=== PATIENT | female | born 1995 | race Caucasian/White ===

== ENCOUNTER → 2022-10-25 11:00 | Outpatient (CLI) | payer OTHER, SELFPAY | PROVIDERS: PCP Nurse Practitioner Family; Visit Provider Nurse Practitioner Family | DX: J02.0 Streptococcal pharyngitis (principal) | CPT/HCPCS: 87070 ==

== ENCOUNTER 2023-02-10 12:12 | Emergency (ER) | payer OTHER, SELFPAY ==
[2023-02-10 12:13] VITALS: BP 115/76; PULSE 88; RESP 14; TEMP 37.2; O2SAT 100; BMI 19.8
[2023-02-10 12:41] VITALS: BP 111/59; PULSE 84; RESP 16; TEMP 37.1; O2SAT 100; BMI 19.8
[2023-02-10 12:41] LABS: UTC Strep Screen (Rapid) Negative (Negative)
--- NOTE | 2023-02-10 12:56 | EXP.UTC ---
Discharge Plan Disposition Patient Disposition: Home, Self-Care Condition: Good Prescriptions Prescriptions: No Action No Known Home Medications Referrals Follow up/Referrals: Maranda Jaimes APRN [Primary Care Provider] - See instructions Clinical Impressions Clinical Impression: Upper respiratory tract infection Stand Alone Forms Stand Alone Forms: Work/School Release Instructions Patient Instructions: DI for Viral Upper Respiratory Infection -- Adult Discharge ED Provider: Tana Cristina [facility] [place] HPI General Stated complaint: Sore throat,Fever,Cough,Nausea Mode of Arrival: Ambulatory Source of Information: Patient Limitations: No Limitations Time Seen by Provider: 02/10/23 12:55 Description of Symptoms (Recalled from Triage Doc. by RN): pt states she woke up yesterday with body aches and sore throat, states it has gotten progressively worse HEENT Symptoms (Recalled from RN notes): Yes (sore throat) Resp Symptoms (Recalled from RN notes): No Skin Symptoms (Recalled from RN notes): No MS Symptoms (Recalled from RN notes): No Functional Status (Recalled from RN notes): wnl History of Present Illness Provider Complaint: Pt states that she has been achy with a sore throat since yesterday. She reports that she started feeling even worse at work and came here to make sure she didn't have strep. She denies taking anything for her symptoms. Related Data Home Medications Medication Instructions Recorded Confirmed No Known Home Medications 02/10/23 02/10/23 Allergies Allergy/AdvReac Type Severity Reaction Status Date / Time cetirizine Allergy Intermediate Shakiness Verified 02/10/23 12:45 Worker's Comp Is this a Worker's Comp case?: No Is this an [facility] Worker's Comp?: No Is this a [facility] Worker's Comp?: No [facility] Disclaimer: The information contained in this section may have been updated after the patient was seen, as this information can be updated by other users. Social History (Updated 10/25/22 @ 14:07 by Tracey Apodaca MA) Smoking Status: Current every day smoker alcohol intake: never current occupational status: employed Travel in the last 8 weeks: None ROS Obtained: Yes All systems reviewed & no additional complaints except as documented Constitutional Constitutional: Reports system reviewed and no additional complaints, except as documented, Reports body ache and Reports malaise Eyes Eyes: Reports system reviewed and no additional complaints, except as documented ENT Ears, Nose, Mouth, and Throat: Reports system reviewed and no additional complaints, except as documented, Reports as per HPI and Reports sore throat Cardiovascular Cardiovascular: Reports system reviewed and no additional complaints, except as documented Respiratory Respiratory: Reports system reviewed and no additional complaints, except as documented Gastrointestinal Gastrointestingal: Reports system reviewed and no additional complaints, except as documented Genitourinary Female Genitourinary: Reports system reviewed and no additional complaints, except as documented Musculoskeletal Musculoskeletal: Reports system reviewed and no additional complaints, except as documented Integumentary/Breasts Skin/Breast: Reports system reviewed and no additional complaints, except as documented Neurologic Neurologic: Reports system reviewed and no additional complaints, except as documented Endocrine Endocrine: Reports system reviewed and no additional complaints, except as documented Hematologic/Lymphatic Henatologic/Lymphatic: Reports system reviewed and no additional complaints, except as documented Allergic/Immunologic Allergic/Immunologic: Reports system reviewed and no additional complaints, except as documented Physical Exam General General appearance: alert and in no apparent distress Head Head exam: atraumatic and normocephalic Eye Eye exam: Present normal appearance Expanded ENT Exam External ear ex
[2023-02-10 13:04] VITALS: BP 115/60; PULSE 82; RESP 16; TEMP 37; O2SAT 100
== END 2023-02-10 13:04 | disposition home or self-care (01) ==
PROVIDERS: Emergency Provider Nurse Practitioner Family; PCP Nurse Practitioner Family
DX: J06.9 Acute upper respiratory infection, unspecified (principal); R50.9 Fever, unspecified; F17.210 Nicotine dependence, cigarettes, uncomplicated
CPT/HCPCS: 87880; 99204; 99212; G0463

== ENCOUNTER 2023-02-17 05:51 | Emergency (ER) | payer OTHER, SELFPAY ==
[2023-02-17 05:52] VITALS: BP 108/71; PULSE 103; RESP 18; TEMP 36.9; O2SAT 98; BMI 19.8
--- NOTE | 2023-02-17 06:08 | HMH.EDEYEP ---
Discharge Plan Disposition Patient Disposition: Home, Self-Care Prescriptions Prescriptions: New cephalexin [cephalexin] 500 mg capsule 500 mg PO TID Qty: 30 0RF prednisone [prednisone] 20 mg tablet 20 mg PO BID Qty: 10 0RF Referrals Follow up/Referrals: Maranda Jaimes APRN [Primary Care Provider] - See instructions Clinical Impressions Clinical Impression: Bacterial conjunctivitis, Sinusitis Stand Alone Forms Stand Alone Forms: Work/School Release Instructions Patient Instructions: DI for Sinusitis Discharge ED Provider: Poncho (ED)Deepak Eye Problem HPI General Chief complaint: Eye Problems Stated complaint: Right eye redness/sinus pressure Time Seen by Provider: 02/17/23 06:08 Mode of Arrival: Ambulatory Source of Information: Patient and Medical Record Limitations: No Limitations Description of Symptoms (Recalled from ER Triage Doc. by RN): pt reports that she has woke up the past few days and her right eye is irritated and matted up the pt reports that she was diagnosed with a sinus infection last week but not given anything for it, History of Present Illness HPI Narrative: rt eye with crusted and has hx of sinus infection chief complaint: eye redness Onset (ago): day(s) Onset description: gradual Duration: intermittent Location: right eye Place: home Severity: moderate Treatments Prior to Arrival: none Related Data Previous Rx's Medication Instructions Recorded cephalexin 500 mg capsule 500 mg PO TID #30 caps 02/17/23 prednisone 20 mg tablet 20 mg PO BID #10 tabs 02/17/23 Allergies Allergy/AdvReac Type Severity Reaction Status Date / Time cetirizine Allergy Intermediate Shakiness Verified 02/10/23 12:45 [facility] Disclaimer: The information contained in this section may have been updated after the patient was seen, as this information can be updated by other users. Social History (Updated 10/25/22 @ 14:07 by Tracey Apodaca MA) Smoking Status: Current every day smoker alcohol intake: never current occupational status: employed Travel in the last 8 weeks: None ROS Obtained: Yes All systems reviewed & no additional complaints except as documented Physical Exam General General appearance: alert Head Head exam: normocephalic Eye Eye exam: Present PERRL, EOMI and conjunctival redness ENT ENT exam: Present mucous membranes moist and other (sinus tenderness ) Neck Neck exam: Present trachea midline Respiratory Respiratory exam: Present normal lung sounds bilaterally; Absent respiratory distress Cardiovascular Cardiovascular exam: Present regular rate Abdominal Exam Abdominal exam: Present soft Extremities Exam Extremities exam: Present full ROM Neurological Exam Neurological exam: Present alert, oriented X3 and CN II-XII intact Psychiatric Psychiatric exam: Present normal affect Skin Skin exam: Absent rash Medical Decision Making Medical Records Medical records reviewed: Yes I reviewed the patient's medical records. Ángel Inquiry Pt receiving controlled substance: No Vital Signs: 02/17/23 05:52 Temperature 98.5 F Temperature Source Oral Pulse Rate [Right] 103 H Respiratory Rate 18 Blood Pressure [Right Arm] 108/71 L Blood Pressure Mean [Right Arm] 83 02 Sat by Pulse Oximetry 98 Oxygen Delivery Method Room Air Medical Decision Narrative: pt with sinus infection and also conjunctivitis Critical Care Time Critical Care Time Critical Care Time: No Attestation: On 02/17/23, the high probability of a clinically significant, sudden or life threatening deterioration of the following system(s) required my full and direct attention, intervention and personal management. The time I documented below is in addition to time spent performing reported procedures but includes the following listed in this critical care notation.
[2023-02-17 06:11] VITALS: BP 110/70; PULSE 85; RESP 16; TEMP 36.9; O2SAT 99
== END 2023-02-17 06:17 | disposition home or self-care (01) ==
PROVIDERS: Emergency Provider Emergency Medicine; PCP Nurse Practitioner Family
DX: H10.31 Unspecified acute conjunctivitis, right eye (principal); J01.90 Acute sinusitis, unspecified; F17.200 Nicotine dependence, unspecified, uncomplicated
CPT/HCPCS: 99283; 99284

== ENCOUNTER → 2023-03-05 23:51 | Outpatient (CLI) | payer OTHER, SELFPAY ==
[2023-03-05 17:54] LABS: Adenovirus,PCR Not Detected (NotDetected); Bordetella Pertussis Not Detected (NotDetected); Chlamydophila Pneumoniae, PCR Not Detected (NotDetected); Coronavirus 19, PCR Not Detected (NotDetected); Coronavirus 229E Not Detected (NotDetected); Coronavirus NL63 Not Detected (NotDetected); Coronavirus OC43 Not Detected (NotDetected); Coronovirus HKU1,PCR Not Detected (NotDetected); Human Metapneumovirus Not Detected (NotDetected); Influenza A, PCR Not Detected (NotDetected); Influenza AH1, 2009 Not Detected (NotDetected); Influenza AH1, PCR Not Detected (NotDetected); Influenza AH3,PCR Not Detected (NotDetected); Influenza B, PCR Not Detected (NotDetected); Mycoplasma Pneumoniae, PCR Not Detected (NotDetected); Parainfluenza 1, PCR Not Detected (NotDetected); Parainfluenza 2, PCR Not Detected (NotDetected); Parainfluenza 3, PCR Not Detected (NotDetected); Parainfluenza 4, PCR Not Detected (NotDetected); Respiratory Syncytial Virus Not Detected (NotDetected)
[2023-03-05 21:22] LABS: Rhinovirus/Enterovirus Detected (NotDetected)
== END ==
LOC: LAB.DROPOF 23:52
PROVIDERS: PCP Student in an Organized Health Care Education/Training Program; Visit Provider Student in an Organized Health Care Education/Training Program
DX: R05.9 Cough, unspecified (principal); B34.1 Enterovirus infection, unspecified
CPT/HCPCS: 87581; 87632; 87798; C9803; U0003; U0005

== ENCOUNTER → 2023-05-07 13:30 | Outpatient (CLI) | payer OTHER, SELFPAY ==
[2023-05-07 19:07] LABS: Basophils % 0.4 % (0.1-2.0); Eosinophils # 0.5 K/mm3 (0.0-0.4); Eosinophils % 6.1 % (0.1-12.0); Hematocrit 40.5 % (37.0-47.0); Hemoglobin 12.9 g/dL (12.2-16.2); Lymphocytes # 2.9 K/mm3 (0.7-4.5); Lymphocytes % 40.1 % (10-50); Mean Corpuscular Volume 84.4 fl (81-99); Mean Platelet Volume 9.2 fl (7.4-10.4); Monocytes # 0.6 K/mm3 (0.1-1.0); Monocytes % 8.3 % (1.7-9.3); Neutrophils # 3.3 K/mm3 (1.8-7.8); Neutrophils % 45.1 % (37.0-80.0); Platelet Count 263 K/mm3 (142-424); Red Cell Distribution Width 14.2 % (11.5-17.5); White Blood Count 7.3 K/mm3 (4.8-10.8)
[2023-05-07 19:14] LABS: Alanine Aminotransferase 16 U/L (12-78); Albumin Level 4.7 g/dl (3.5-5.0); Albumin/Globulin Ratio 1.9 (1.1-1.8); Alkaline Phosphatase 82 U/L (38-126); Anion Gap 14.7 mEq/L (5-15); Aspartate Amino Transferase 27 U/L (14-36); Bilirubin,Total 0.2 mg/dl (0.2-1.3); Blood Urea Nitrogen 8 mg/dl (7-17); Calcium 9.2 mg/dl (8.4-10.2); Carbon Dioxide 23 mmol/L (22.0-30.0); Chloride 106 mmol/L (98-107); Estimated Glomerular Filt Rate 122 ml/min (>60); GFR (African American) 147 ML/MIN (>60); Globulin 2.5 g/dL (1.3-3.2); Glucose 87 mg/dl (74-100); Potassium 3.7 mmoL/L (3.5-5.1); Sodium 140 mmol/L (136-145); Total Protein,Serum 7.2 g/dl (6.3-8.2)
[2023-05-07 19:31] LABS: 25-OH Vitamin D, Total 53.1 ng/mL (30-100)
[2023-05-07 20:43] LABS: Thyroid Stimulating Hormone 2.81 uIU/mL (0.465-4.68)
== END ==
PROVIDERS: PCP Student in an Organized Health Care Education/Training Program; Visit Provider Student in an Organized Health Care Education/Training Program
DX: Z72.0 Tobacco use (principal); R53.83 Other fatigue; R10.9 Unspecified abdominal pain; K43.2 Incisional hernia without obstruction or gangrene
CPT/HCPCS: 80053; 82306; 84443; 85025

== ENCOUNTER → 2023-05-15 09:36 | Outpatient (CLI) | payer OTHER, SELFPAY ==
--- NOTE | 2023-05-15 09:36 | US_ITS ---
FINAL REPORT CLINICAL HISTORY: Pain, knot at C section incision COMPARISON: None FINDINGS: Sonographic images of the area of interest were obtained. There is a heterogeneous hypoechoic focus corresponding to the palpable abnormality measuring approximately 2.7 x 2.1 cm. This is favored to represent localized scar. This structure is not cystic. IMPRESSION: Probable localized scar at the area of interest. Reviewed, Interpreted and Dictated by Bertin Juarez MD Transcribed by Socorro Hussein Authenticated and [facility]
== END ==
PROVIDERS: PCP Student in an Organized Health Care Education/Training Program; Visit Provider Student in an Organized Health Care Education/Training Program
DX: K43.2 Incisional hernia without obstruction or gangrene (principal); L76.82 Other postprocedural complications of skin and subcutaneous tissue
CPT/HCPCS: 76705

== ENCOUNTER 2023-11-13 08:11 | Emergency (ER) | payer OTHER, SELFPAY ==
[2023-11-13 08:14] VITALS: BP 120/94; PULSE 100; RESP 18; TEMP 36.6; O2SAT 99; BMI 19.8
[2023-11-13 08:15] VITALS: BP 120/94; PULSE 104; RESP 18; O2SAT 99
[2023-11-13 08:41] VITALS: BP 128/88; PULSE 94; RESP 18; TEMP 36.6
--- NOTE | 2023-11-13 08:41 | HMH.EDGENADL ---
Discharge Plan Disposition Patient Disposition: Home, Self-Care Chief Complaint: Eye Problems Prescriptions Prescriptions: No Action ondansetron 4 mg tablet,disintegrating 4 mg PO Q8H PRN (Reason: nausea and vomiting) Qty: 14 0RF naproxen 375 mg tablet 375 mg PO BID PRN (Reason: pain) Qty: 20 0RF albuterol sulfate 90 mcg/actuation HFA aerosol inhaler 1 inh inhalation QID Qty: 6.7 2RF Referrals Follow up/Referrals: Shelbie Azul PA [Primary Care Provider] - See instructions Activity Restrictions/Add. Instructions Additional Instructions/Restrictions: Call your family doctor to establish care for this visit to the emergency department and schedule follow-up within 48 hours to ensure improvement. If you have any worsening of your condition or any other concerning signs or symptoms, return to the emergency department or your primary care doctor for further evaluation. Use antibiotic ointment and eyedrops 3 times daily for 5 days. Clinical Impressions Clinical Impression: Iritis, traumatic Abrasion, corneal Qualifiers: Encounter type: initial encounter Laterality: left Qualified Code(s): S05.02XA - Injury of conjunctiva and corneal abrasion without foreign body, left eye, initial encounter Discharge ED Provider: Thee Lee General Adult HPI General Chief complaint: Eye Problems Stated complaint: [id number] left eye swollen and painfull Time Seen by Provider: 11/13/23 08:14 Mode of Arrival: Ambulatory Limitations: No Limitations Description of Symptoms (Recalled from ER Triage Doc. by RN): hit herself in the eye a cardboard box. left eye History of Present Illness HPI narrative: 27-year-old female with no known medical history presenting with left eye trauma. Patient states that she was lifting a box today when one of the pipes along with opened up and hit her in the she was treated. Has had light sensitivity and pain on the front of her eye since that time. Mildly blurry vision, but unsure if this is due to tearing or other cause. Related Data Previous Rx's Medication Instructions Recorded albuterol sulfate 90 mcg/actuation 1 inh inhalation QID #6.7 grams 03/05/23 aerosol inhaler naproxen 375 mg tablet 375 mg PO BID PRN pain #20 tabs 09/18/23 ondansetron 4 mg disintegrating 4 mg PO Q8H PRN nausea and 09/18/23 tablet vomiting #14 tabs Allergies Allergy/AdvReac Type Severity Reaction Status Date / Time cetirizine Allergy Intermediate Shakiness Verified 09/18/23 09:32 [facility] Disclaimer: The information contained in this section may have been updated after the patient was seen, as this information can be updated by other users. Medical History delivery delivered Subcutaneous mass of abdominal wall Tobacco use Surgical History H/O: section Family History Other Asthma Cancer Diabetes FHx: mental illness Heart attack Hypertension Stroke Substance abuse Social History Smoking Status: Current every day smoker alcohol intake: never substance use type: former substance user and methamphetamine current occupational status: employed Travel in the last 8 weeks: None ROS Obtained: Yes All systems reviewed & no additional complaints except as documented Physical Exam General General appearance: alert and in no apparent distress Head Head exam: atraumatic and normocephalic Eye Eye exam: Present PERRL, EOMI, conjunctival redness and other (Photophobia and consensual photophobia left eye. Conjunctival injection left eye. No evidence of hyphema, proptosis, entrapment, conjunctival hemorrhage, pupillary changes, cellulitic change, obvious foreign body, or otherwise irregular ocular findings. Fluorescein exam with focal uptake 1 mm ) Expanded Eye Exam Comment: Superficial abrasion overlying pupil. IOP 16 ENT ENT exam: Present mucous membranes moist Neck Neck exam: Present normal inspection, full ROM and trachea midline Respiratory Respiratory exam: Absent respiratory distress, wheezes, stridor, accessory muscle use or prolonged expiratory phase Cardiovascular Cardiovascular exam: Present normal rhythm Abdominal Exam Abdominal exam: Present soft; Absent distention, tenderness, guarding, rebound or rigidity Extremities Exam Extremities exam: Absent edema Neurological Exam Neurological exam: Present alert, oriented X3, CN II-XII intact and normal gait; Absent motor sensory deficit Skin Skin exam: Present warm and dry; Absent diaphoresis or erythema Medical Decision Making Medical Records Medical records reviewed: Yes I reviewed the patient's medical records. Ángel Inquiry Pt receiving controlled substance: No Ángel was queried for this patient: No Vital Signs: 11/13/23 08:14 Temperature 98 F Temperature Source Oral Pulse Rate [Right Radial] 100 H Respiratory Rate 18 Blood Pressure [Right Arm] 120/94 H Blood Pressure Mean [Right Arm] 102 02 Sat by Pulse Oximetry 99 Oxygen Delivery Method Room Air Orders (Tests/Meds): ED MEDICATIONS Discontinued Medications Generic Name Dose Route Start Last Admin Trade Name Sacha PRN Reason Stop Dose Admin Fluorescein Sodium 1 mg 11/13/23 08:14 Fluorescein Sodium 1mg Strip OP 11/13/23 08:15 ONCE ONE Tetracaine HCl 0 ml 11/13/23 08:14 Tetracaine 0.5% Opth Damari 15ml OP 11/13/23 08:15 ONCE ONE Medical Decision Narrative: 27-year-old female with no known medical history presenting with left eye trauma. Patient states that she was lifting a box today when one of the pipes along with opened up and hit her in the she was treated. Has had light sensitivity and pain on the front of her eye since that time. Mildly blurry vision, but unsure if this is due to tearing or other cause. History was obtained via conversation with patient. On arrival, patient hemodynamically stable, alert, oriented x4, appropriate, GCS 15, moving all extremities spontaneously, pupils equal and reactive to light. Full physical exam performed and significant for well-appearing woman in no acute distress. EOMs intact. Visual acuity mildly decreased in left eye secondary to blurry vision and tearing. IOP 16. No evidence of hyphema, proptosis, entrapment, conjunctival hemorrhage, pupillary changes, cellulitic change, obvious foreign body, or otherwise irregular ocular findings. Fluorescein exam with focal uptake about 1 mm overlying the center of the pupil. No pupillary haziness. Consensual photophobia of the left eye Differential includes traumatic iritis, superficial corneal abrasion, among others. Patient was given tetracaine drops, fluorescein for exam,for symptomatic management and correction of underlying abnormalities. 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 On reevaluation, patient given Cyclogyl and erythromycin ointment for home-going. Given patient presentation, workup, history, this most likely represents traumatic iritis and superficial corneal abrasion. Because patient at baseline without signs or symptoms of clinical decompensation, deemed appropriate for discharge. Results were relayed to patient who voiced understanding and were agreeable to outpatient management and follow up. At the time of discharge the patient was hemodynamically stable, tolerating PO, and mobilizing appropriately. Critical Care Critical Care Time Critical Care Time: No
[2023-11-13] MEDS: FLUORESCEIN SODIUM 1MG STRIP 1 MG OP (08:57)
[2023-11-13] MEDS: TETRACAINE 0.5% OPTH SOL 15ML OP (08:57)
== END 2023-11-13 08:57 | disposition home or self-care (01) ==
PROVIDERS: Emergency Provider Emergency Medicine; PCP Student in an Organized Health Care Education/Training Program
DX: S05.02XA Injury of conjunctiva and corneal abrasion without foreign body, left eye, initial encounter (principal); F17.200 Nicotine dependence, unspecified, uncomplicated; W22.8XXA Striking against or struck by other objects, initial encounter
CPT/HCPCS: 99283

== ENCOUNTER 2023-12-12 14:22 | Outpatient (CLI) | payer OTHER, SELFPAY ==
--- NOTE | 2023-12-12 14:34 | XR_ITS ---
FINAL REPORT CLINICAL HISTORY: right wrist and hand pain, no injury FINDINGS: Right wrist Three views were obtained. There is no acute fracture or dislocation. The joint spaces appear normal. No soft tissue abnormality is identified. IMPRESSION: No acute process. Reviewed, Interpreted and Dictated by Herminio Chapin III, MD Transcribed by Keyla Vogel Authenticated and [facility]
--- NOTE | 2023-12-12 14:34 | XR_ITS ---
FINAL REPORT CLINICAL HISTORY: right wrist and hand pain, no injury FINDINGS: Right right Three views were obtained. There is no acute fracture or dislocation. The joint spaces appear normal. No soft tissue abnormality is identified. IMPRESSION: No acute process. Reviewed, Interpreted and Dictated by Herminio Chapin III, MD Transcribed by Keyla Vogel Authenticated and [facility]
[2023-12-12 14:49] LABS: Basophils # 0.1 K/mm3 (0-0.2); Basophils % 1.4 % (0.1-2.0); Eosinophils # 0.1 K/mm3 (0.0-0.4); Eosinophils % 1.4 % (0.1-12.0); Hemoglobin 13.8 g/dL (12.2-16.2); Lymphocytes # 1.6 K/mm3 (0.7-4.5); Mean Corpuscular Hemoglobin 28.8 pg (27.0-31.2); Mean Corpuscular Volume 87.5 fl (81-99); Mean Platelet Volume 8.3 fl (7.4-10.4); Monocytes # 0.3 K/mm3 (0.1-1.0); Monocytes % 3.5 % (1.7-9.3); Neutrophils # 5.9 K/mm3 (1.8-7.8); Neutrophils % 73.8 % (37.0-80.0); Platelet Count 254 K/mm3 (142-424); Red Cell Distribution Width 13.9 % (11.5-17.5)
[2023-12-12 15:00] LABS: Chloride 106 mmol/L (98-107)
[2023-12-12 15:01] LABS: Potassium 3.6 mmoL/L (3.5-5.1); Sodium 139 mmol/L (136-145)
[2023-12-12 15:03] LABS: Alanine Aminotransferase 27 U/L (12-78); Alkaline Phosphatase 61 U/L (38-126); Aspartate Amino Transferase 31 U/L (14-36); Bilirubin,Total 0.3 mg/dl (0.2-1.3); Blood Urea Nitrogen 8 mg/dl (7-17); Estimated Glomerular Filt Rate 102 ml/min (>60); GFR (African American) 123 ML/MIN (>60)
[2023-12-12 15:04] LABS: Albumin Level 4.7 g/dl (3.5-5.0); Albumin/Globulin Ratio 2.1 (1.1-1.8); Anion Gap 9.6 mEq/L (5-15); Calcium 9.4 mg/dl (8.4-10.2); Carbon Dioxide 27 mmol/L (22.0-30.0); Globulin 2.2 g/dL (1.3-3.2); Glucose 83 mg/dl (74-100); Total Protein,Serum 6.9 g/dl (6.3-8.2)
[2023-12-12 15:09] LABS: C-Reactive Protein 0.3 mg/L (0-4)
[2023-12-12 16:18] LABS: Erythrocyte Sedimentation Rate 6 mm/hr (0-20)
[2023-12-12 16:35] LABS: Vitamin B12 359 pg/mL (239-931)
[2023-12-12 16:42] LABS: Folate 7.22 ng/mL
[2023-12-13 14:13] LABS: Anti-Centromere B Antibodies <0.2 AI (0.0-0.9); Anti-DNA (DS) Ab Qn 2 IU/mL (0-9); Anti-Jo-1 <0.2 AI (0.0-0.9); Anti-Smith Antibody <0.2 AI (0.0-0.9); Antichromatin Antibodies <0.2 AI (0.0-0.9); Antiscleroderma-70 Antibodies <0.2 AI (0.0-0.9); RNP Antibodies 0.2 AI (0.0-0.9); Sjogren's Anti-SS-A <0.2 AI (0.0-0.9); Sjogren's Anti-SS-B <0.2 AI (0.0-0.9)
== END 2023-12-12 23:59 ==
LOC: LAB 14:23
PROVIDERS: PCP Student in an Organized Health Care Education/Training Program; Visit Provider Student in an Organized Health Care Education/Training Program
DX: M25.531 Pain in right wrist (principal); M79.641 Pain in right hand; M25.50 Pain in unspecified joint; R20.0 Anesthesia of skin; R20.2 Paresthesia of skin
CPT/HCPCS: 36415; 73110; 73130; 80053; 82607; 82746; 85025; 85651; 86140; 86225; 86235

== ENCOUNTER 2024-01-10 14:55 | Emergency (ER) | payer OTHER, SELFPAY ==
[2024-01-10 14:56] VITALS: BP 117/74; PULSE 85; RESP 15; TEMP 36.9; O2SAT 98; BMI 19.8
--- NOTE | 2024-01-10 15:09 | ED_ITS ---
<Statement entered by Ana Courtney MD - 01/10/24 23:07> I was consulted by the ALY, and we discussed the complexity of the problems being addressed. I approved the treatment and management plan for this patient's care in the emergency department, thus performing a substantive portion of the medical decision making. Ana Courtney MD, HERBERT, FACEP Discharge Plan Disposition Patient Disposition: Home, Self-Care Condition: Good Prescriptions Prescriptions: New amoxicillin-pot clavulanate 875-125 mg tablet 1 tab PO BID Qty: 20 0RF No Action naproxen 375 mg tablet 375 mg PO BID PRN (Reason: pain) Qty: 20 0RF albuterol sulfate 90 mcg/actuation HFA aerosol inhaler 1 inh inhalation QID Qty: 6.7 2RF Referrals Follow up/Referrals: Shelbie Azul PA [Primary Care Provider] - See instructions Activity Restrictions/Add. Instructions Additional Instructions/Restrictions: Please keep follow-up with dentistry. Please take all antibiotics as prescribed. Please take Tylenol alternating with Motrin every 4 hours as needed for pain and swelling. Follow-up with your PCP or return to ER for any worsening signs or symptoms. Clinical Impressions Clinical Impression: Cellulitis of face, Pain, dental Discharge ED Provider: Ana Courtney General Adult HPI General Chief complaint: Dental/Oral Stated complaint: tooth ache Time Seen by Provider: 01/10/24 15:06 Mode of Arrival: Ambulatory Source of Information: Patient Limitations: No Limitations Description of Symptoms (Recalled from ER Triage Doc. by RN): pt presents to ED with c/o right wisdom tooth pain. pt reports pain ongoing for the past week but today pain has gotten worse. pt states that she may have an abcess that has formed. pt states that she spoke with a dentist and the earliest she can get an appoitment is in two weeks. History of Present Illness HPI narrative: Patient presents for a 1 week history of tooth pain. Patient has had right lower last molar tooth pain however she woke up this morning with swelling and increase in her pain. Patient did speak to dentistry however they told her that it would be 2 weeks before they could see her hence she presented to the emergency department at their behest for evaluation. Patient denies chest pain shortness of breath fever chills hemoptysis hematochezia melena nausea vomit diarrhea. Related Data Previous Rx's Medication Instructions Recorded albuterol sulfate 90 mcg/actuation 1 inh inhalation QID #6.7 grams 03/05/23 aerosol inhaler naproxen 375 mg tablet 375 mg PO BID PRN pain #20 tabs 09/18/23 amoxicillin 875 mg-potassium 1 tab PO BID #20 tabs 01/10/24 clavulanate 125 mg tablet Allergies Allergy/AdvReac Type Severity Reaction Status Date / Time cetirizine Allergy Intermediate Shakiness Verified 01/08/24 09:20 [facility] Disclaimer: The information contained in this section may have been updated after the patient was seen, as this information can be updated by other users. Medical History Subcutaneous mass of abdominal wall delivery delivered Tobacco use Surgical History H/O: section Family History Other Asthma Cancer Diabetes FHx: mental illness Heart attack Hypertension Stroke Substance abuse Social History Smoking Status: Current every day smoker alcohol intake: never substance use type: former substance user and methamphetamine current occupational status: employed Travel in the last 8 weeks: None ROS Obtained: Yes Systems reviewed as appropriate & no additional complaints except as documented Physical Exam General General appearance: alert and in no apparent distress Head Head exam: atraumatic and normal inspection Eye Eye exam: Present normal appearance, PERRL and EOMI ENT ENT exam: Present normal exam, normal oropharynx and mucous membranes moist Neck Neck exam: Present normal inspection, full ROM and trachea midline; Absent lymphadenopathy Chest Chest inspection: Present normal inspection and symmetric chest wall rise Respiratory Respiratory exam: Present normal lung sounds bilaterally; Absent accessory muscle use Cardiovascular Cardiovascular exam: Present regular rate, normal rhythm, normal heart sounds, +S1 and +S2 Abdominal Exam Abdominal exam: Present soft and normal bowel sounds; Absent tenderness, guarding or rebound Extremities Exam Extremities exam: Present normal inspection and full ROM Neurological Exam Neurological exam: Present alert, oriented X3 and CN II-XII intact Psychiatric Psychiatric exam: Present normal affect and normal mood Skin Skin exam: Present warm, dry and normal color Lymphatic Lymphatic Findings: no adenopathy Medical Decision Making Medical Records Medical records reviewed: Yes I reviewed the patient's medical records. Ángel Inquiry Pt receiving controlled substance: No Vital Signs: 01/10/24 14:56 Temperature 98.5 F Temperature Source Oral Pulse Rate [Left Radial] 85 Respiratory Rate 15 Blood Pressure [Right Arm] 117/74 Blood Pressure Mean [Right Arm] 88 02 Sat by Pulse Oximetry 98 Lab Data Lab results reviewed: Yes I reviewed the patient's lab results. Orders (Tests/Meds): ED MEDICATIONS Generic Name Dose Route Start Last Admin Trade Name Sacha PRN Reason Stop Dose Admin Amoxicillin/Clavulanate Potassium 1 each 01/10/24 15:26 Amoxicillin/Clavulanate Potassium 875/125mg Tablet PO 01/10/24 15:27 ONCE ONE Lidocaine HCl 15 ml 01/10/24 15:10 01/10/24 15:27 Lidocaine 2% Viscous Damari 15ml Udc PO 01/10/24 15:11 15 ml ONCE ONE Administration Medical Decision Narrative: In summary patient is a 28-year-old female who presents to the emergency department for evaluation of right face swelling. Patient is hemodynamically stable upon arrival, febrile. Physical exam is remarkable for right-sided posterior mandible swelling but no palpable fluctuance, redness at the posterior aspect of the right occlusal plane that is tender to palpation and no discrete fluctuance is able to be palpated. No lymphadenopathy. Differential diagnosis includes cellulitis, dentalgia pain, large salivary gland versus dental abscess versus deep space infection versus bony erosion etc. As patient has no palpable fluid collection and no evidence of deep space infection currently less than 24 hours of swelling considered CT of the face as well as laboratory investigations however not indicated currently she is afebrile hemodynamically stable. Given this patient initiated on Augmentin 875 with first dose given here instructions to keep her follow-up with dentistry. I counseled patient on return conditions including worsening redness swelling pain with the possibility of a nerve block. Patient verbalized understanding and agreement. Critical Care Critical Care Time Critical Care Time: No
[2024-01-10] MEDS: LIDOCAINE 2% VISCOUS SOL 15ML UDC 15 ML PO (15:27)
[2024-01-10 15:30] VITALS: BP 117/71; PULSE 87; O2SAT 96
[2024-01-10] MEDS: AMOXICILLIN/CLAVULANATE POTASSIUM 875/125MG TABLET 1 EACH PO (15:38)
[2024-01-10 15:46] VITALS: BP 117/71; PULSE 87; RESP 16; TEMP 36.7
== END 2024-01-10 15:47 | disposition home or self-care (01) ==
PROVIDERS: Emergency Provider Student in an Organized Health Care Education/Training Program; PCP Student in an Organized Health Care Education/Training Program
DX: L03.211 Cellulitis of face (principal); K08.89 Other specified disorders of teeth and supporting structures; F17.210 Nicotine dependence, cigarettes, uncomplicated
CPT/HCPCS: 99283

== ENCOUNTER 2024-03-01 16:20 | Emergency (ER) | payer OTHER, SELFPAY ==
[2024-03-01 17:27] VITALS: BP 0/0; PULSE 0; RESP 0; TEMP -17.7; TEMP 0
== END 2024-03-01 17:28 | disposition left against medical advice (07) ==
PROVIDERS: Emergency Provider Nurse Practitioner Family; PCP Student in an Organized Health Care Education/Training Program
DX: Z53.21 Procedure and treatment not carried out due to patient leaving prior to being seen by health care provider (principal)

== ENCOUNTER 2024-04-04 10:46 | Emergency (ER) | payer BC, SELFPAY ==
[2024-04-04 10:53] VITALS: BP 127/99; PULSE 62; RESP 18; TEMP 36.9; O2SAT 99; BMI 18.8
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
[2024-04-04 11:00] VITALS: BP 113/75; PULSE 65; O2SAT 99
[2024-04-04] MEDS: IBUPROFEN 600 MG TABLET PO (11:16)
[2024-04-04 11:18] VITALS: BP 113/75; PULSE 65; RESP 18; TEMP 36.6; O2SAT 98
== END 2024-04-04 11:21 | disposition home or self-care (01) ==
PROVIDERS: Emergency Provider Emergency Medicine; PCP Student in an Organized Health Care Education/Training Program
DX: K08.89 Other specified disorders of teeth and supporting structures (principal); F17.210 Nicotine dependence, cigarettes, uncomplicated
CPT/HCPCS: 99283

== ENCOUNTER 2024-07-23 14:21 | Outpatient (CLI) | payer BC, SELFPAY ==
[2024-07-23 14:56] LABS: Basophils # 0.1 K/mm3 (0-0.2); Basophils % 1.3 % (0.1-2.0); Eosinophils # 0.3 K/mm3 (0.0-0.4); Eosinophils % 3.6 % (0.1-12.0); Hematocrit 37.9 % (37.0-47.0); Hemoglobin 12.9 g/dL (12.2-16.2); Lymphocytes # 2.9 K/mm3 (0.7-4.5); Lymphocytes % 34.7 % (10-50); Mean Corpuscular HGB Conc 33.9 g/dL (31.8-35.4); Mean Corpuscular Hemoglobin 29.1 pg (27.0-31.2); Mean Corpuscular Volume 85.9 fl (81-99); Mean Platelet Volume 8.4 fl (7.4-10.4); Monocytes # 0.5 K/mm3 (0.1-1.0); Monocytes % 6.2 % (1.7-9.3); Neutrophils # 4.6 K/mm3 (1.8-7.8); Neutrophils % 54.1 % (37.0-80.0); Platelet Count 257 K/mm3 (142-424); Red Blood Count 4.42 M/mm3 (4.20-5.40); Red Cell Distribution Width 13.4 % (11.5-17.5); White Blood Count 8.4 K/mm3 (4.8-10.8)
[2024-07-23 15:19] LABS: Alanine Aminotransferase 17 U/L (12-78); Albumin Level 4.5 g/dl (3.5-5.0); Alkaline Phosphatase 45 U/L (38-126); Anion Gap 9.7 mEq/L (5-15); Aspartate Amino Transferase 27 U/L (14-36); Bilirubin,Total 0.6 mg/dl (0.2-1.3); Blood Urea Nitrogen 13 mg/dl (7-17); Calcium 9.1 mg/dl (8.4-10.2); Carbon Dioxide 27 mmol/L (22.0-30.0); Chloride 106 mmol/L (98-107); Estimated Glomerular Filt Rate 101 ml/min (>60); GFR (African American) 122 ML/MIN (>60); Globulin 2.3 g/dL (1.3-3.2); Glucose 99 mg/dl (74-100); Potassium 3.7 mmoL/L (3.5-5.1); Sodium 139 mmol/L (136-145); Total Protein,Serum 6.8 g/dl (6.3-8.2)
[2024-07-23 16:01] LABS: HCG,Quantitative < 2 mIU/ml (0-5.42)
== END 2024-07-23 23:59 | disposition home or self-care (01) ==
LOC: PREOP 14:21
PROVIDERS: PCP Student in an Organized Health Care Education/Training Program; Visit Provider Obstetrics & Gynecology
DX: R22.2 Localized swelling, mass and lump, trunk (principal)
CPT/HCPCS: 80053; 84702; 85025

== ENCOUNTER 2024-07-28 07:45 | Day surgery (SDC) | payer BC, SELFPAY ==
[2024-07-23 14:41] VITALS: BMI 19.3
[2024-07-28] VITALS (10 sets, daily range): BP systolic 109–140; BP diastolic 45–87; PULSE 64–110; RESP 17–28; TEMP 36.6–36.9; O2SAT 97–100
[2024-07-28] MEDS: ACETAMINOPHEN 500MG TAB 1000 MG (08:13)
[2024-07-28] MEDS: LACTATED RINGERS 1000ML 1,000 ML 25 ML IV (08:14)
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
[2024-07-28] MEDS: CEFAZOLIN 2GM VIAL 2 GM (09:17)
[2024-07-28] MEDS: BUPIVACAINE 0.5% W/EPI 1:200,000 30ML VIAL 30 ML IJ (09:40)
[2024-07-28] MEDS: MEPERIDINE 25MG/ML 1ML SYRINGE 25 MG IV (10:18)
--- NOTE | 2024-07-28 10:26 | P.PNANES_ITS ---
[facility] Anesthesia Record Part I Anesthesia Record I Intake, IV Amount: 1,100 Hydration: Adequate Estimated blood loss (mL): 3 Urine output (mL): 0 Blood Products used (#): none Blood Pressure: 128/56 SaO2: 99 Pulse Rate: 110 Airway Patency: Patent Respiratory Rate: 28 Temperature: 98.4 F Patient is:: Drowsy and Stable Stable to PACU at:: 10:15
--- NOTE | 2024-07-28 10:39 | SUR.PHASEI ---
1018- verbal order from Ana Bray CRNA to give 25mg of demerol for post-op shivering. Orders faxed to pharmacy and carried out. 1033- pt c/o pain 07/03. No PACU orders in NOV. This RN reached out to AL[facility] Olmos for PACU orders. 1038- PACU orders placed and I was able to treat pt per NOV
[2024-07-28] MEDS: MORPHINE 2MG/ML SYRINGE 2 MG IV ×3 (10:43→10:58)
--- NOTE | 2024-07-28 10:44 | EXP.OP.NOTE ---
Date of procedure: 07/28/24 Pre-op Diagnosis:: 1. Subcutaneous mass of abdominal wall 2. History of 3. Menorrhagia 4. Irregular periods 5. Dysmenorrhea Post-op Diagnosis:: 1. Subcutaneous mass of abdominal wall 2. History of 3. Menorrhagia 4. Irregular periods 5. Dysmenorrhea Procedure performed:: Excision of subcutaneous abdominal wall mass Surgeon:: Krystle Rose DO Director Of Financial Reporting(s):: Orion Nicolas MD PARK RANGER:: Skinny Bray Anesthesia: GETA Estimated blood loss (mL): 10 Clinical Note:: Ms Rosa Lopes is a 28 yo P1001 who presents to [facility] for scheduled procedure. She complains of painful, heavy, irregular periods and increasing size and pain in superficial lump below scar. She tried Depo Provera in the past. She has not been on any control/hormonal control since delivery of her baby in 2018. She has family history of endometriosis. She is using OTC NSAIDs for pain. She had an emergent in 2018 in [place]. One year later she noticed lump under her scar. Over the past 4 years lump has slightly increased in size and is intermittently painful but becoming more painful. Certain clothing and touch increases pain. Denies skin changes and drainage. Ultrasound performed 05/15/23 demonstrated palpable localized scar tissue at area of concern. Operative findings:: 1. 5 cm x 4 cm mass in the subcutaneous tissue possibly down to fascia under Pfannestiel scar Operative note:: Discussed risks, benefits, alternatives, expectations and possible complications of surgery. All questions addressed and answered. Patient wished to proceed with surgery. Patient was wheeled back to the operating room and placed under general anesthesia without difficulty. The patient received 2 grams of Ancef preoperatively. SCDs in place. Then she was placed in the supine position. She was prepped and draped in normal sterile fashion. Attention was then turned to the abdomen. 0.5 % Bupicaine with epinephrine was injected just under the skin at incision site. A skin incision was made 0.5 cm below Pfannenstiel incision over 5 cm mass. Hard subcutaneous mass was excised with blunt and sharp dissection. Mass was handed off the sterile field and will be sent to pathology. Fascia was intact. Small amount of oozing noted on surface of fascia. Surgicel powder was applied. Hemostasis was noted. Subcutaneous tissue was reapproximated with 2-0 Vicryl suture. Skin was reapproximated with 4-0 Monocryl. Steri strips and Telfa were placed over closed skin incision. Patient awoke from anesthesia without difficulty and was transferred to the recovery room in stable condition. Condition: stable Disposition: same day Specimens:: 1. Subcutaneous fat mass Complications:: None
--- NOTE | 2024-07-28 11:08 | SUR.PHASEI ---
pt now reporting 5/10 abdominal pain. Pt stated that this pain rating was manageable at this time. Pt brought to postop, bedside report given to YAKELIN Johnson.
[2024-07-30 10:20] VITALS: BP 119/75; PULSE 64; RESP 18; TEMP 36.6; O2SAT 100
--- NOTE | 2024-07-30 10:20 | EXP.ANES.II ---
[facility] Anesthesia Record Part II Anesthesia Record Part II Discharge Time: 10:55 Destination: Surgical Day Care (OP Surgery) PACU nurse assessment reviewed?: Yes Patient Condition:: Good Anesthesia Complications:: None Swallowing reflex intact?: Yes Airway Patency: Patent Cyanosis?: No Blood Pressure: 119/75 SaO2: 100 Respiratory Rate: 18 Pulse Rate: 64 Temperature: 97.8 F Mental Status: Alert & Oriented Pain level:: 7 Nausea and/or vomitting:: None Intake, IV Amount: 0 Hydration: Adequate
== END 2024-07-28 11:35 | disposition home or self-care (01) ==
PROVIDERS: PCP Student in an Organized Health Care Education/Training Program; Visit Provider Obstetrics & Gynecology
PROC: (CPT 49203; principal; 2024-07-28 09:15)
DX: R22.2 Localized swelling, mass and lump, trunk (principal); N92.0 Excessive and frequent menstruation with regular cycle; N92.6 Irregular menstruation, unspecified; N94.6 Dysmenorrhea, unspecified
CPT/HCPCS: 49203; 96374; J0690; J1100; J1885; J2175; J2250; J2270; J2405; J3010; J7120

== ENCOUNTER 2024-08-09 15:48 | Observation (INO) | payer BC, SELFPAY ==
[2024-08-09] VITALS (13 sets, daily range): BP systolic 103–132; BP diastolic 62–87; PULSE 65–95; RESP 14–18; TEMP 36.8; O2SAT 98–100; BMI 19.0; BMI 18.9
--- NOTE | 2024-08-09 15:52 | PC.NURSE ---
dr nelson at bedside
--- NOTE | 2024-08-09 16:00 | CT_ITS ---
PROCEDURE INFORMATION: Exam: CT Abdomen And Pelvis With Contrast Exam date and time: 08/09/2024 4:29 PM Age: 28 years old Clinical indication: Abdominal pain; Localized; Lower; Additional info: Suprapubic complex fluid collection TECHNIQUE: Imaging protocol: Computed tomography of the abdomen and pelvis with contrast. Radiation optimization: All CT scans at this facility use at least one of these dose optimization techniques: automated exposure control; mA and/or kV adjustment per patient size (includes targeted exams where dose is matched to clinical indication); or iterative reconstruction. Contrast material: ISOVUE; Contrast volume: 75 ml; Contrast route: IV; COMPARISON: No relevant prior studies available. FINDINGS: Liver: Unremarkable. Gallbladder and biliary ducts: No calcified stones. No ductal dilation. Pancreas: Unremarkable. No ductal dilation. Spleen: No splenomegaly. Adrenal glands: No mass. Kidneys and ureters: Unremarkable. No significant hydronephrosis. Stomach and bowel: No definite mural thickening. No obstruction. Appendix: Normal caliber. No inflammation. Intraperitoneal space: No significant fluid collection. No definite free air. Vasculature: Unremarkable. No aneurysm. Lymph nodes: No pathologically enlarged lymph nodes. Urinary bladder: Unremarkable. Reproductive: Small ovarian follicles. Tampon within vaginal vault. Bones/joints: Probable bone islands. No acute fracture. Soft tissues: 7.0 x 3.5 x 7.3 cm fluid collection with small focus of air along midline anterior pelvic wall. IMPRESSION: Fluid collection within anterior pelvic wall. Differential diagnosis may include seroma, resolving hematoma, abscess. Clinical correlation and follow up are recommended.
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
[2024-08-09] MEDS: HYDROMORPHONE 2MG/ML SYRINGE 0.5 MG IV ×2 (16:21→17:50)
[2024-08-09] MEDS: KETOROLAC 30MG/ML VIAL 15 MG IV (16:21)
[2024-08-09] MEDS: SODIUM CHLORIDE 0.9% 10ML SYR (RAD ONLY) 10 ML IV (16:31)
[2024-08-09] MEDS: IOPAMIDOL-370 (76%);100ML BOTTLE 75 ML IV (16:31)
[2024-08-09 16:36] LABS: Albumin Level 4.8 g/dl (3.5-5.0); Basophils # 0.2 K/mm3 (0-0.2); Basophils % 1.5 % (0.1-2.0); Chloride 104 mmol/L (98-107); Eosinophils # 0.3 K/mm3 (0.0-0.4); Eosinophils % 2.7 % (0.1-12.0); Hematocrit 38.6 % (37.0-47.0); Hemoglobin 13.5 g/dL (12.2-16.2); Lymphocytes # 3.4 K/mm3 (0.7-4.5); Lymphocytes % 30.4 % (10-50); Mean Corpuscular HGB Conc 34.9 g/dL (31.8-35.4); Mean Corpuscular Hemoglobin 29.2 pg (27.0-31.2); Mean Corpuscular Volume 83.6 fl (81-99); Mean Platelet Volume 7.8 fl (7.4-10.4); Monocytes # 0.7 K/mm3 (0.1-1.0); Neutrophils # 6.6 K/mm3 (1.8-7.8); Neutrophils % 59.4 % (37.0-80.0); Platelet Count 277 K/mm3 (142-424); Red Blood Count 4.62 M/mm3 (4.20-5.40); Red Cell Distribution Width 13.4 % (11.5-17.5); Sodium 138 mmol/L (136-145); White Blood Count 11.2 K/mm3 (4.8-10.8)
--- NOTE | 2024-08-09 16:36 | PC.NURSE ---
pt returned from ct
[2024-08-09 16:37] LABS: Potassium 3.7 mmoL/L (3.5-5.1)
[2024-08-09 16:39] LABS: Alanine Aminotransferase 20 U/L (12-78); Anion Gap 10.7 mEq/L (5-15); Aspartate Amino Transferase 28 U/L (14-36); Blood Urea Nitrogen 10 mg/dl (7-17); Carbon Dioxide 27 mmol/L (22.0-30.0); Creatinine Clearance Estimated 82 mL/min (50-200); Estimated Glomerular Filt Rate 101 ml/min (>60); GFR (African American) 122 ML/MIN (>60); Lactic Acid 0.9 mmol/L (0.7-2.1)
[2024-08-09 16:40] LABS: Albumin/Globulin Ratio 1.9 (1.1-1.8); Alkaline Phosphatase 56 U/L (38-126); Bilirubin,Total 0.5 mg/dl (0.2-1.3); Calcium 9.4 mg/dl (8.4-10.2); Globulin 2.5 g/dL (1.3-3.2); Glucose 106 mg/dl (74-100); Total Protein,Serum 7.3 g/dl (6.3-8.2)
[2024-08-09] MEDS: LIDOCAINE 1% 20ML MDV 20 ML SUBCUT (17:43)
[2024-08-09] MEDS: VANCOMYCIN CONSULT REQUEST 1 EACH NOTAPPLIC (17:47)
[2024-08-09] MEDS: VANCOMYCIN HCL 1,000 MG in 0.9 % SODIUM CHLORIDE 250 ML 125 MG IV (17:48)
--- NOTE | 2024-08-09 18:34 | PC.NURSE ---
ANODISER NOTIFIED OF ADMISSION
--- NOTE | 2024-08-09 18:43 | PC.NURSE ---
called report to charles rn on 2nd floor and answered all questions
[2024-08-09 19:30] LABS: HIV (1&2) Antibody Rapid NONREACTIVE (NONREACTIVE)
--- NOTE | 2024-08-09 19:33 | PC.NURSE ---
pt bedding changed. Pt repositioned. Bandage placed over incision per MD.
[2024-08-09 20:50] LABS: Erythrocyte Sedimentation Rate 5 mm/hr (0-20)
[2024-08-09] MEDS: OXYCODONE 5MG IMMEDIATE RELEASE TABLET 5 MG PO (21:38)
[2024-08-09] MEDS: ONDANSETRON 4MG/2ML VIAL 4 MG IV (21:38)
--- NOTE | 2024-08-09 22:05 | PC.WOUNDNOTE ---
abscess to lower abd
[2024-08-10] MEDS: NICOTINE 21MG/24HR PATCH 21 MG TD (00:16)
[2024-08-10] MEDS: PROMETHAZINE HCL 25MG/ML 1ML VIAL 12.5 MG IV (01:56)
[2024-08-10] MEDS: OXYCODONE 5MG IMMEDIATE RELEASE TABLET 10 MG PO ×4 (01:57→20:03)
[2024-08-10 04:00] VITALS: BP 91/57; PULSE 67; RESP 16; TEMP 36.6; O2SAT 98; BMI 18.9
[2024-08-10] MEDS: VANCOMYCIN HCL 750 MG in 0.9 % SODIUM CHLORIDE 250 ML 125 MG IV (05:14)
[2024-08-10 07:56] VITALS: BP 103/48; PULSE 71; RESP 18; TEMP 36.9; O2SAT 98
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
--- NOTE | 2024-08-10 11:19 | EXP.PHA.CONS ---
Pharmacy Consult Date: 08/10/24 Time: 11:20 Referring provider: DR. RICKETTS Reason for Consult:: VANCOMYCIN DOSING Allergies Allergy/AdvReac Type Severity Reaction Status Date / Time cetirizine Allergy Intermediate Shakiness Verified 08/08/24 09:42 Home Medications ?Medication ?Instructions ?Recorded ?Confirmed ?Type No Known Home Medications 08/09/24 08/09/24 History New Prescriptions to Start Prescriptions: Height: 1.5 m Weight: 42.638 kg Laboratory Results:: Laboratory Results - last 24 hr 08/09/24 16:07: ESR 5, C-Reactive Protein 1.0 08/09/24 16:12: WBC 11.2 H, RBC 4.62, Hgb 13.5, Hct 38.6, MCV 83.6, MCH 29.2, MCHC 34.9, RDW 13.4, Plt Count 277, MPV 7.8, Neut % (Auto) 59.4, Lymph % (Auto) 30.4, [place] % (Auto) 6.0, Eos % (Auto) 2.7, Baso % (Auto) 1.5, Neut # (Auto) 6.6, Lymph # (Auto) 3.4, [place] # (Auto) 0.7, Eos # (Auto) 0.3, Baso # (Auto) 0.2, Sodium 138, Potassium 3.7, Chloride 104, Carbon Dioxide 27, Anion Gap 10.7, BUN 10, Creatinine 0.70, Estimated Creat Clear 82, Estimated GFR 101, Est GFR ( Amer) 122, Glucose 106 H, Lactate 0.9, Calcium 9.4, Total Bilirubin 0.5, AST 28, ALT 20, Alkaline Phosphatase 56, Total Protein 7.3, Albumin 4.8, Globulin 2.5, Albumin/Globulin Ratio 1.9 H, HIV 1&2 Antibody Rapid Nonreactive Medical History: Medical History Menorrhagia Irregular periods/menstrual cycles Dysmenorrhea Strep pharyngitis Sinusitis Bacterial conjunctivitis Upper respiratory tract infection Iritis, traumatic Abrasion, corneal Cellulitis of face Pain, dental Patient left without being seen Substance abuse Subcutaneous mass of abdominal wall delivery delivered Tobacco use Assessment and Plan Assessment and plan all Dx Assessment and Plan for all problems:: Pharmacokinetic dosing service Objective: Patient: Floor: Age: 28 yo Serum creatinine: 0.7 mg/dL Height: 59.1 Inches Weight (kg): 42.6 Assessment: IBW (kg): 44.82 Dosing wt(kg): 42.6 Estimated Creatinine clearance (ml/min): 81.9 CRCL method: Cockcroft and Gault using ibw(default). Drug selected: Vancomycin Loading dose (mg): 0 Vd (liters): 34.1 (factor used: 0.8 L/kg) Jesus (hr-1): 0.072 Half life (hrs): 9.63 Recommended dose: 1000 mg Interval: 18 hrs Infusion time (hrs): 2.0 Predicted peak (mcg/mL): 37.6 Predicted trough (mcg/mL): 11.88 Total body weight is being used for vancomycin dosing. Recommendations: Give Vancomycin 1000 mg q 18 hrs with an expected Cpeak of 37.6 mcg/ml and an expected Ctrough of 11.88 mcg/ml ----Vanco only - ignore for aminoglycosides----- CLvanco= 2.46 L/hr AUC 0-24 /GREG Data: GREG 0.5 mcg/mL: AUC/GREG: 1084.0 GREG 1.0 mcg/mL: AUC/GREG: 542.0 --------- GREG 1.5 mcg/mL: AUC/GREG: 361.3 GREG 2.0 mcg/mL: AUC/GREG: 271.0
--- NOTE | 2024-08-10 11:21 | PC.NURSE ---
Jody Patel MD went in to see pt. wanted to change abdominal dsg. dsg was changed and remains cdi. instructed to leave dsg in place until sees pt tomorrow. instructed this RN to reinforce dsg w/ ABD pad if dsg becomes soiled. also ordreed some pt home medications per pt request. no new orders at this time. call light within reach.
[2024-08-10 11:28] LABS: Basophils # 0.1 K/mm3 (0-0.2); Basophils % 1.3 % (0.1-2.0); Eosinophils # 0.4 K/mm3 (0.0-0.4); Eosinophils % 4.1 % (0.1-12.0); Hematocrit 37.4 % (37.0-47.0); Hemoglobin 12.7 g/dL (12.2-16.2); Lymphocytes # 3.6 K/mm3 (0.7-4.5); Lymphocytes % 36.4 % (10-50); Mean Corpuscular HGB Conc 33.9 g/dL (31.8-35.4); Mean Corpuscular Hemoglobin 29.1 pg (27.0-31.2); Mean Corpuscular Volume 85.8 fl (81-99); Mean Platelet Volume 8.4 fl (7.4-10.4); Monocytes # 0.7 K/mm3 (0.1-1.0); Monocytes % 6.8 % (1.7-9.3); Neutrophils % 51.4 % (37.0-80.0); Platelet Count 254 K/mm3 (142-424); Red Blood Count 4.36 M/mm3 (4.20-5.40); Red Cell Distribution Width 13.5 % (11.5-17.5); White Blood Count 9.8 K/mm3 (4.8-10.8)
[2024-08-10] MEDS: BUSPIRONE HCL 5 MG TABLET PO ×2 (12:27→20:03)
[2024-08-10] MEDS: diphenhydrAMINE 25MG CAPSULE 25 MG PO ×2 (13:28→20:10)
--- NOTE | 2024-08-10 14:12 | PC.NURSE ---
pt c/o itching . pt stated that when she takes pain medication she typically has some itching and has taken benadryl in the past to relieve s/s. MD was paged and made aware of situation and ordered this RN to fax sheet over to pharmacy for the order. no new orders at this time. pt was given benadryl per order and is no longer c/o itching.
[2024-08-10 16:00] VITALS: BP 114/65; PULSE 91; RESP 16; TEMP 36.8; O2SAT 97
[2024-08-10 20:00] VITALS: BP 96/54; PULSE 69; RESP 18; TEMP 36.8; O2SAT 98
[2024-08-10] MEDS: OLANZapine 5 MG ODT TABLET SL (20:03)
[2024-08-10] MEDS: VANCOMYCIN HCL 1,000 MG in 0.9 % SODIUM CHLORIDE 250 ML 125 MG IV (20:03)
[2024-08-11] MEDS: NICOTINE 21MG/24HR PATCH 21 MG TD (00:36)
[2024-08-11] MEDS: OXYCODONE 5MG IMMEDIATE RELEASE TABLET 5 MG PO (00:36)
[2024-08-11 04:00] VITALS: BP 89/47; PULSE 55; RESP 16; TEMP 36.6; O2SAT 100; BMI 18.9
[2024-08-11 08:00] VITALS: BP 109/61; PULSE 63; RESP 18; TEMP 37.1; O2SAT 99
[2024-08-11] MEDS: BUSPIRONE HCL 5 MG TABLET PO ×2 (08:25→12:10)
[2024-08-11 15:06] LABS: Vancomycin,Trough < 5.0 ug/mL (5.0-10.0)
--- NOTE | 2024-08-11 15:19 | EXP.PHA.CONS ---
Pharmacy Consult Date: 08/11/24 Time: 15:20 Referring provider: DR. RICKETTS Reason for Consult:: VANCOMYCIN LEVEL AND DOSE CHANGE Allergies Allergy/AdvReac Type Severity Reaction Status Date / Time cetirizine Allergy Intermediate Shakiness Verified 08/08/24 09:42 Home Medications ?Medication ?Instructions ?Recorded ?Confirmed ?Type buspirone 5 mg tablet 5 mg PO TID 08/10/24 08/10/24 History olanzapine 5 mg tablet 5 mg PO HS 08/10/24 08/10/24 History New Prescriptions to Start Prescriptions: Height: 1.5 m Weight: 42.638 kg Laboratory Results:: Laboratory Results - last 24 hr 08/11/24 14:09: Vancomycin Trough < 5.0 L Medical History: Medical History Menorrhagia Irregular periods/menstrual cycles Dysmenorrhea Strep pharyngitis Sinusitis Bacterial conjunctivitis Upper respiratory tract infection Iritis, traumatic Abrasion, corneal Cellulitis of face Pain, dental Patient left without being seen Substance abuse Subcutaneous mass of abdominal wall delivery delivered Tobacco use Assessment and Plan Assessment and plan all Dx Assessment and Plan for all problems:: Pharmacokinetic dosing service Weight: 42.6 Kilograms Vancomycin single level analysis: Current dose being given: 1000 mg Current dosing interval: 18 hrs Current infusion time (hrs): 2 Single level Trough Data: Trough level obtained: 5 mcg/ml Timing of trough - # of hrs before next dose: 0.05 Hrs Desired peak: 35 mcg/ml Desired trough: 15 mcg/ml Estimated PK Parameters: New rate constant (marquis): 0.104 hr-1 Half-life: 6.66 Hours Vd from levels: 36.21 Liters (0.7 L/kg) CLvanco=?? 3.766 L/hr Estimated New Dose and Interval Recommended dose: 912.7 mg Recommended interval: 10.1 Hrs Patient response: Patient is responding to treatment [yes/no] wbc decreasing, S/SX reduced [yes/no] Renal function is stable/unstable Recommendations: Give Vancomycin 750 mg q 8 hrs. Infuse over 2 hrs Expected Cpeak: 33.1 mcg/mL Expected Ctrough: 17.7 mcg/mL
--- NOTE | 2024-08-11 15:23 | PC.NURSE ---
pt remains on room air and alert and oriented. pt has had no complaints this shift. pt voiced pain @ abscess, but explained that it was manageable and did not need pain medicine .instructed pt to let this RN know if pain increased. pt requested to go outside to smoke, pt educated and denied d/t hospital smoking policy. dsg remains cdi and was reinforced earlier in shift w/ tape d/t edges peeling up. no new orders at this time. call light within reach.
[2024-08-11] MEDS: VANCOMYCIN HCL 750 MG in 0.9 % SODIUM CHLORIDE 250 ML 125 MG IV (15:42)
[2024-08-11 16:00] VITALS: BP 133/80; PULSE 81; RESP 16; TEMP 36.8; O2SAT 99
--- NOTE | 2024-08-11 17:42 | P.DS_ITS ---
General Admission date:: 08/09/24 Discharge date: 08/11/24 HPI HPI HPI: Rosa Lopes reports about 3 days ago she started having significant pain at her incision and noticed it looked like it was getting larger. She was seen by her PCP who suggested ED evaluation but the patient declined at that time. She later presented to the ED with pain at her incision. She denied any fevers or generalized malaise. 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 Rosa states prior to her CS she never had dysmenorrhea or pelvic pain but since the CS it has been occurring more consistently and more intense. She does report since her surgery on 07/28/24 she has felt significantly better until 3 days ago. Interactive discussion with ED physician and recommended CT scan to evaluate fascia integrity. CT showed intact fascia with a 7.0x3.5x7.3cm fluid collection. Differential included: seroma, resolving hematoma or abscess. After shared decision making they elected to drain in it the ED and aldo hematoma was noted and a pressure dressing applied. Hospital Course Hospital Course Hospital Course: Small 0.5 incision noted from ED drainage. 2cm packing in place as well as a pressure dressing. Dressing and packing removed. 70mL of hematoma evacuated. Wound irrigated with 50mL of sterile normal saline. Blood tinged saline without clot or aldo blood noted on return. It is approximately 3cm deep and approximately 5cm total in length. A sterile Qtip was used to pack the wound with iodoform gauze. Pressure dressing applied. On exam today a second hematoma was evacuated of approximately 60-70mL of dark blood old, almost chocolate cyst appearing thick blood. -Clinically the patient is stable. Her VS are stable and appropriate. Her labs are within normal limits -Continue IV Vancomycin She has remained afebrile with her hospitalization. She is feeling better. She is no longer actively bleeding from the wound. She has packing in the wound. Should be discharged home today to follow-up with Dr. Rose tomorrow. Her dressing was changed prior to discharge. Her condition on discharge is stable and improved. Exam Data for Last 24 hours Vital signs and Labs for Last 24 Hours: Temp Pulse Resp BP Pulse Ox O2 Del Method 98.7 F 63 18 109/61 L 99 Room Air 08/11/24 08:00 08/11/24 08:00 08/11/24 08:00 08/11/24 08:00 08/11/24 08:00 08/11/24 16:43 Laboratory Results - last 24 hr 08/11/24 14:09: Vancomycin Trough < 5.0 L I & O for Last 24 hours: Intake & Output 08/09/24 08/10/24 08/11/24 08/12/24 11:59 11:59 11:59 11:59 Intake Total 715 / 715 2770 / 2770 575 / 575 Output Total 0 / 0 0 / 0 Balance 715 / 715 2770 / 2770 575 / 575 Weight 94 lb 0.011 oz 94 lb 94 lb Microbiology Reports for the Last 24 Hours: Microbiology 08/09/24 16:20 Blood Blood Culture - Preliminary NO GROWTH AFTER 48 HOURS 08/09/24 16:00 Blood Blood Culture - Preliminary NO GROWTH AFTER 48 HOURS Constitutional Constitutional: no acute distress *Routine HEENT Exam Head: Present normocephalic *Routine Neck Exam Neck: Present full ROM *Routine Respiratory Exam Respiratory: Present normal respiratory effort; Absent accessory muscle use *Routine Abdominal Exam Abdominal: Present soft and normoactive bowel sounds; Absent tenderness or distended Comments: Her incision is clean and dry. There is packing within the incision. We will change the dressing prior to her discharge. Results Data Completed and Pending Labs on day of discharge: Labs from last 24 hours 08/11/24 14:09 Vancomycin Trough < 5.0 L Preliminary micro results at discharge 08/09/24 16:20 Blood Culture - Preliminary Blood NO GROWTH AFTER 48 HOURS 08/09/24 16:00 Blood Culture - Preliminary Blood NO GROWTH AFTER 48 HOURS DS: Diagnosis Discharge Diagnosis (1) Postoperative hematoma: Status: Acute Qualifiers: Surgical complication system/body Area: skin (2) Subcutaneous mass of abdominal wall: Status: Acute Code(s): R22.2 - Localized swelling, mass and lump, trunk Problem details: painful (3) H/O: section: Status: Acute Code(s): Z98.891 - History of uterine scar from previous surgery (4) Tobacco use: Status: Acute Code(s): Z72.0 - Tobacco use (5) MDD (major depressive disorder): Status: Acute Code(s): F32.9 - Major depressive disorder, single episode, unspecified Qualifiers: Major depression recurrence: single episode Active/Remission status: in partial remission Qualified Code(s): F32.4 - Major depressive disorder, single episode, in partial remission (6) Panic attack as reaction to stress: Status: Acute Code(s): F41.0 - Panic disorder [episodic paroxysmal anxiety]; F43.0 - Acute stress reaction Meds Home Medications and Allergies Home Medications ?Medication ?Instructions ?Recorded ?Confirmed ?Type buspirone 5 mg tablet 5 mg PO TID 08/10/24 08/10/24 History olanzapine 5 mg tablet 5 mg PO HS 08/10/24 08/10/24 History New Prescriptions to Start Prescriptions: Allergies Allergy/AdvReac Type Severity Reaction Status Date / Time cetirizine Allergy Intermediate Shakiness Verified 08/08/24 09:42 Discharge Plan Disposition Patient Disposition: Home, Self-Care Follow up Plan Follow up with: Shelbie Azul PA [Primary Care Provider] - Enter time for follow up (please call for appointment) Prescriptions/Medication Reconciliation: Continued buspirone 5 mg tablet 5 mg PO TID olanzapine 5 mg tablet 5 mg PO HS Problem Reconciliation Problems Reviewed?: Yes Patient Discharge Instructions ACTIVITY: Limited activity and No heavy lifting DIET: continue same diet Patient Instructions: DI for Hematoma (Bruise) Print Language: Persian Providers Primary Care Provider: Shelbie Azul Admit Provider: Jody Patel Attending Provider: Jody Patel
[2024-08-12 05:29] LABS: HCV Ab Non Reactive (Non Reactive)
--- NOTE | 2024-08-12 10:54 | SW/DCPLANNER ---
Spoke with patient on her discharge from the hospital. Patient stated that she is doing well and that she has been taking it easy. Patient stated that she has no concerns or questions at this time. Gustavo Elena
== END 2024-08-11 18:10 | disposition home or self-care (01) ==
LOC: ER 16:09 → 2ND 18:37
PROVIDERS: Admitting Provider Obstetrics & Gynecology; Emergency Provider Emergency Medicine; PCP Student in an Organized Health Care Education/Training Program; Visit Provider Obstetrics & Gynecology
DX: L76.32 Postprocedural hematoma of skin and subcutaneous tissue following other procedure (principal); R22.2 Localized swelling, mass and lump, trunk; Z98.891 History of uterine scar from previous surgery; F41.0 Panic disorder [episodic paroxysmal anxiety]; F43.0 Acute stress reaction; F32.4 Major depressive disorder, single episode, in partial remission; F17.210 Nicotine dependence, cigarettes, uncomplicated
CPT/HCPCS: 10140; 36415; 74177; 80053; 80202; 83605; 85025; 85651; 86140; 86803; 87040; 87070; 87205; 87389; 99285; G0378; J1171; J1885; J2405; J2550; J3370; J7050; Q9967

== ENCOUNTER 2024-11-08 10:05 | Emergency (ER) | payer MEDICAID, SELFPAY ==
[2024-11-08 10:06] VITALS: BP 125/77; PULSE 88; RESP 16; TEMP 36.5; O2SAT 98; BMI 19.8
--- NOTE | 2024-11-08 10:21 | PC.NURSE ---
wound culture obtained. sent to lab
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
[2024-11-08] MEDS: cephALEXin 500MG CAPSULE 500 MG PO (10:27)
[2024-11-08] MEDS: SULFA/TRIMETHOPRIM 1 TABLET 1 EACH PO (10:27)
[2024-11-08 10:32] VITALS: BP 125/77; PULSE 77; RESP 18; TEMP 36.5; O2SAT 99
--- NOTE | 2024-11-11 17:11 | PC.NURSE ---
WOUND CULTURE DISCUSSED WITH DR PHAN, NO NEW ORDERS
--- NOTE | 2024-11-14 12:58 | PC.NURSE ---
WOUND CULTURE DISCUSSED WITH DR STEEL, NO NEW ORDERS
== END 2024-11-08 10:35 | disposition home or self-care (01) ==
LOC: ER 10:31
PROVIDERS: Emergency Provider Student in an Organized Health Care Education/Training Program; PCP Student in an Organized Health Care Education/Training Program
DX: L02.211 Cutaneous abscess of abdominal wall (principal); R10.30 Lower abdominal pain, unspecified; R51.9 Headache, unspecified; R53.1 Weakness; M79.10 Myalgia, unspecified site; F17.210 Nicotine dependence, cigarettes, uncomplicated
CPT/HCPCS: 87070; 87077; 87186; 87205; 99283

== ENCOUNTER 2025-06-23 14:58 | Outpatient (CLI) | payer MEDICAID, SELFPAY ==
[2025-06-23 15:09] LABS: Hematocrit 39.5 % (37.0-47.0); Hemoglobin 13.1 g/dL (12.2-16.2); Immature Granulocytes % 0.4 %; Mean Corpuscular HGB Conc 33.2 g/dL (31.8-35.4); Mean Corpuscular Hemoglobin 28.2 pg (27.0-31.2); Mean Corpuscular Volume 85.1 fl (81-99); Nucleated Red Blood Cells % 0 %; Platelet Count 242 K/mm3 (142-424); Red Blood Count 4.64 M/mm3 (4.20-5.40); Red Cell Distribution Width-SD 39.3 fL; White Blood Count 8.3 K/mm3 (4.8-10.8)
[2025-06-23 15:41] LABS: Alanine Aminotransferase 16 U/L (12-78); Albumin Level 4.5 g/dl (3.5-5.0); Albumin/Globulin Ratio 2.1 (1.1-1.8); Alkaline Phosphatase 69 U/L (38-126); Anion Gap 11.8 mEq/L (5-15); Aspartate Amino Transferase 23 U/L (14-36); Bilirubin,Total 0.7 mg/dl (0.2-1.3); Blood Urea Nitrogen 6 mg/dl (7-17); Calcium 9.4 mg/dl (8.4-10.2); Carbon Dioxide 25 mmol/L (22.0-30.0); Chloride 106 mmol/L (98-107); Creatinine,Serum 0.60 mg/dl (0.52-1.04); Estimated Glomerular Filt Rate 120 ml/min (>60); GFR (African American) 145 ML/MIN (>60); Globulin 2.1 g/dL (1.3-3.2); Glucose 84 mg/dl (74-100); Potassium 3.8 mmoL/L (3.5-5.1); Sodium 139 mmol/L (136-145); Total Protein,Serum 6.6 g/dl (6.3-8.2)
[2025-06-23 15:55] LABS: Free T4 (Free Thyroxine) 1.19 ng/dl (0.78-2.19)
[2025-06-23 16:08] LABS: Thyroid Stimulating Hormone 2.03 uIU/mL (0.465-4.68)
== END 2025-06-23 23:59 | disposition home or self-care (01) ==
LOC: LAB.DROPOF 14:59
PROVIDERS: PCP Student in an Organized Health Care Education/Training Program; Visit Provider Student in an Organized Health Care Education/Training Program
DX: R00.2 Palpitations (principal); R55 Syncope and collapse; R61 Generalized hyperhidrosis; Z83.3 Family history of diabetes mellitus
CPT/HCPCS: 80053; 84439; 84443; 85025

== ENCOUNTER 2025-09-13 11:34 | Outpatient (CLI) | payer MEDICAID, SELFPAY ==
[2025-09-13 20:18] LABS: Coronavirus 19, PCR Not Detected (NotDetected); Influenza A, PCR Not Detected (NotDetected); Influenza B, PCR Not Detected (NotDetected)
== END 2025-09-13 23:59 | disposition home or self-care (01) ==
LOC: LAB.DROPOF 09-14 10:25
PROVIDERS: PCP Student in an Organized Health Care Education/Training Program; Visit Provider Nurse Practitioner
DX: J06.9 Acute upper respiratory infection, unspecified (principal)
CPT/HCPCS: 87631